=== PATIENT | female | born 2005 | race Hispanic/Latino ===

== ENCOUNTER 2024-02-16 07:20 | Day surgery (SDC) | payer OTHER ==
[2024-02-10 10:54] LABS: BASOPHILS # (AUTO) 0.03 K/uL (0.00-0.20); BASOPHILS % (AUTO) 0.4 % (0.0-5.0); EOSINOPHILS % (AUTO) 1.4 % (0.0-8.0); HEMATOCRIT 39.7 % (36-48); IMMATURE GRANULOCYTE ABSOLUTE 0.02 K/uL (0-1); LYMPHOCYTES # (AUTO) 3.5 K/uL (1.0-4.8); LYMPHOCYTES % (AUTO) 50.2 % (21.0-51.0); MEAN CORPUSCULAR HEMOGLOBIN 30.2 pg (27.0-33.0); MEAN CORPUSCULAR HGB CONC 33.8 g/dL (32.0-36.0); MEAN CORPUSCULAR VOLUME 89.6 fL (80-100); MONOCYTES # (AUTO) 0.5 K/uL (0.1-1.0); MONOCYTES % (AUTO) 6.4 % (3.0-13.0); NEUTROPHILS # (AUTO) 2.9 K/uL (1.8-7.7); NEUTROPHILS % (AUTO) 41.3 % (40.0-77.0); PLATELET COUNT (AUTO) 348 K/uL (130-400); RED BLOOD CELL COUNT(AUTO) 4.43 MIL/uL (4.00-5.50); RED CELL DISTRIBUTION WIDTH 13.2 % (11.0-15.5)
[2024-02-10 11:00] VITALS: BP 90/73; PULSE 86; RESP 18
[~2024-02-16] VITALS: Ht 154.9 cm; Wt 82.8 kg
[2024-02-16] VITALS (16 sets, daily range): BP systolic 89–126; BP diastolic 52–84; PULSE 69–91; RESP 14–18
[2024-02-16] MEDS ORDERED: CEFAZOLIN SODIUM 2 GM VIAL ONE (07:33)
[2024-02-16] MEDS ORDERED: DEXAMETHASONE SOD PHOSPHATE 10MG/ML 1ML VIAL ONE (07:46)
[2024-02-16] MEDS ORDERED: LIDOCAINE PF 100MG/5ML (2%) SYRINGE 5ML ONE (07:46)
[2024-02-16] MEDS ORDERED: GLYCOPYRROLATE 0.2 MG/ML 5 ML VIAL ONE (07:47)
[2024-02-16] MEDS ORDERED: NEOSTIGMINE METHYLSULFATE 1MG/ML IV ONE (07:47)
[2024-02-16] MEDS ORDERED: MIDAZOLAM HCL 1 MG/ML 2ML VIAL ONE (07:47)
[2024-02-16] MEDS ORDERED: ONDANSETRON 4MG INJ ONE (07:47)
[2024-02-16] MEDS ORDERED: SUCCINYLCHOLINE CHLORIDE 20 MG/ML 10 ML VIAL ONE (07:47)
[2024-02-16] MEDS ORDERED: PROPOFOL 10 MG/ML 20ML VIAL IV ONE (07:47)
[2024-02-16] MEDS ORDERED: ROCURONIUM BROMIDE 10MG/1ML 5ML VL ONE (07:48)
[2024-02-16] MEDS ORDERED: FENTANYL CITRATE PF 50 MCG/1 ML 2ML VIAL ONE ×2 (07:48→09:03)
[2024-02-16] MEDS: LACTATED RINGERS 1000ML 1,000 ML IV ONE (07:54)
[2024-02-16] MEDS ORDERED: PHENYLEPHRINE HCL 10 MG/ML 1ML VIAL IV ONE (08:53)
[2024-02-16] MEDS: CEFAZOLIN SODIUM 2 GM VIAL IVPB ONE (08:59)
[2024-02-16] MEDS ORDERED: BUPIVACAINE/PF 0.5% 30ML VIAL ONE (09:05)
[2024-02-16] MEDS ORDERED: SUGAMMADEX SODIUM 200 MG/2 ML VIAL IV ONE (09:35)
[2024-02-16] MEDS ORDERED: KETOROLAC 30MG VIAL (30MG/ML) ONE (09:44)
== END 2024-02-16 11:40 | disposition home or self-care (01) ==
LOC: DAH 07:20
PROVIDERS: ATTEND Surgery
DX: L05.91 Pilonidal cyst without abscess (principal); K21.9 Gastro-esophageal reflux disease without esophagitis; Z79.899 Other long term (current) drug therapy; Z90.49 Acquired absence of other specified parts of digestive tract; Z98.890 Other specified postprocedural states
CPT/HCPCS: 84703; 85025; 36415; 11771; 43235; 81025; A6260; A4663; J7120 ×2; A4215 ×2; A4606; J3010 ×2; J1100; J0330; J3490 ×2; J2001; J2250; J2704; J2405; J1885; J2710; J0665 ×2; J2371; J0690 ×2; A4223; A4213; A4222; A4221; A4600